=== PATIENT | male | born 1935 | race Caucasian/White ===

== ENCOUNTER 2017-12-26 14:38 | Emergency (ER) | payer OTHER, BC ==
[~2017-12-26] VITALS: Ht 185.4 cm; Wt 108.6 kg
[~2017-12-26 14:38] MED LIST: ATORVASTATIN CA40 MG PO; DOCUSATE SODIU100 MG PO; DOK PLUS TABLE1 EACH PO; ESCITALOPRAM OX10 MG PO; LISINOPRIL40 MG PO; MAGNESIUM CITR296 M1 PO; OMEPRAZOLE40 M1 PO; POLYETHYLENE GL17 GM PO; RANITIDINE HCL150 MG PO; STOOL SOFTENER100 MG PO
[2017-12-26 15:59] LABS: HEMATOCRIT 36.9 % (38.0-50.0); HEMOGLOBIN 12.9 G/DL (12.5-16.6); MCV 91.6 FL (86-99); PLATELET COUNT 157 K/uL (156-360); RBC DIS.WIDTH-CV 12.4 % (11.8-14.6); RBC DIS.WIDTH-SD 41.7 % (39-53); RED BLOOD COUNT 4.03 M/uL (4.00-5.50)
[2017-12-26 16:04] LABS: APPEARANCE CLOUDY ((CLEAR)); BILIRUBIN NEGATIVE; BLOOD NEGATIVE; COLOR YELLOW ((YELLOW)); GLUCOSE (STRIP) 50; KETONES NEGATIVE; LEUKOCYTES NEGATIVE; NITRITE NEGATIVE; PROTEIN (STRIP) 100; UROBILINOGEN 0.2 MG/DL (0.2-1.0)
[2017-12-26 16:11] LABS: ALBUMIN 3.6 g/dL (3.2-4.8)
[2017-12-26 16:12] LABS: CHLORIDE 108 mEq/L (99-109); POTASSIUM 4.3 mEq/L (3.7-5.4); SODIUM 144 mEq/L (136-147)
[2017-12-26 16:14] LABS: GLUCOSE 200 mg/dL (70-99); TOTAL PROTEIN 6.3 g/dL (6.4-8.3)
[2017-12-26 16:16] LABS: TOTAL BILIRUBIN 0.6 mg/dL (0.0-1.0)
[2017-12-26 16:17] LABS: ALKALINE PHOSPHATASE 112 IU/L (3-129)
[2017-12-26 16:18] LABS: CREATININE 1.4 mg/dL (0.6-1.3); GFR ESTIMATE (CALCULATED) 52 mL/min/ (58.99-99999)
[2017-12-26 16:19] LABS: AST (GOT) 15 IU/L (2-34); UREA NITROGEN (BUN) 28 mg/dL (9-23)
[2017-12-26 16:21] LABS: ALT (GPT) 14 IU/L (3-49); LIPASE 12 U/L (1.0-51.0)
[2017-12-26 16:27] LABS: AMORPHOUS PHOSPHATE CRYSTALS 3+; BACTERIA NONE SEEN /HPF; EPITHELIAL CELLS RARE /HPF; MUCUS NONE SEEN /LPF; RED BLOOD CELLS 0-5 /HPF (0-5); UCUL ADDED? NO; WHITE BLOOD CELLS NONE SEEN /HPF (0-5)
[2017-12-26] MEDS ORDERED: ZOFRAN4 MG SL (19:12)
[2017-12-26] MEDS ORDERED: BENTYL10 MG PO (19:12)
[2017-12-26 19:27] VITALS: BP 132/74
== END 2017-12-26 19:27 | disposition home or self-care (01) ==
LOC: EME 14:38
PROVIDERS: Physician Assistant
DX: K52.9 Noninfective gastroenteritis and colitis, unspecified (principal); N17.9 Acute kidney failure, unspecified; K21.9 Gastro-esophageal reflux disease without esophagitis; I10 Essential (primary) hypertension; G47.30 Sleep apnea, unspecified; E78.5 Hyperlipidemia, unspecified; F32.9 Major depressive disorder, single episode, unspecified; Z87.891 Personal history of nicotine dependence
CPT/HCPCS: 74177; 80053; 81003; 83690; 85027; 99281; 99284; J2405; J7030